=== PATIENT | female | born 1955 | race Caucasian/White ===

== ENCOUNTER 2019-03-12 05:56 | Day surgery (SDC) | payer BC, MEDICARE ==
[2019-03-12] MEDS ORDERED: Lactated Ringers 1,000 ML IV ONE (06:48)
[2019-03-12] MEDS ORDERED: Lactated Ringers 1,000 ML IV SCH (07:00)
[2019-03-12] MEDS ORDERED: DIPRIVAN 200 MG/20 ML IV ONE ×2 (07:25→08:15)
[2019-03-12 09:11] VITALS: O2SAT 98
[2019-03-12 09:19] VITALS: BP 130/80; PULSE 68
--- NOTE | 2019-03-12 10:02 | OP ---
SURGERY DATE/TIME: 03/12/2019 0805 PREOPERATIVE DIAGNOSIS: Screening exam. POSTOPERATIVE DIAGNOSIS: Moderate to severe sigmoid diverticulosis. PROCEDURE: Colonoscopy. SURGEON: Dr. Arriaza. ANESTHESIA: MAC. Medications given by anesthesia department. HISTORY: The patient is a 63 year-old white female presenting now for her first screening colonoscopy. She was appraised of the risks of the procedure including the risk of perforation, phlebitis, untoward reaction to medication, bleeding and missed lesions. The patient verbalized her understanding and desired to have the procedure performed. DESCRIPTION OF PROCEDURE: The patient was given the medications by the anesthesia department. She had continuous pulse oximetry, ECG monitoring, intermittent blood pressure monitoring and tidal CO2 monitoring during the examination. She was placed in the left lateral decubitus position. A digital rectal examination was performed and revealed normal anal sphincter tone and no masses. The flexible Olympus pediatric colonoscope was used to intubate the rectum. A view of the colon was developed sequentially to the cecum. Upon insertion and withdrawal was noted a fairly tortuous sigmoid colon with moderate to severe diverticulosis. There were a few diverticular areas that extended up to the transverse colon. No other mucosal lesions being encountered, the scope was removed from the patient who tolerated the procedure well and was sent back to OP recovery in good condition. The prep was noted to be fair to good.
== END 2019-03-12 09:22 | disposition home or self-care (01) ==
LOC: SDC 05:56
PROVIDERS: ATTEND Family Medicine
DX: Z12.11 Encounter for screening for malignant neoplasm of colon (principal); K57.30 Diverticulosis of large intestine without perforation or abscess without bleeding
CPT/HCPCS: J1642; J2704

== ENCOUNTER 2020-07-19 11:06 | Emergency (ER) | payer MEDICARE ==
[2020-07-19] MEDS ORDERED: MORPHINE SULFATE 4 MG INJ IM ONE (11:26)
[2020-07-19] MEDS ORDERED: MORPHINE SULFATE 4 MG INJ ONE (11:30)
--- NOTE | 2020-07-19 11:38 | ERPHSYRPT ---
- History of Present Illness Time Seen by Provider: 07/19/20 11:14 Source: patient Exam Limitations: no limitations Patient Subjective Stated Complaint: PT states "I was walking my dog yesterday and I tripped over his leash and hit my lower back on the steps. I felt ok last night but could not get out of bed this morning my back hurts so bad." Triage Nursing Assessment: PT presnted alert and oriented X 3, skin pwd. Pt ambulates with a slow gait, grunting and stiff. pt in no apparent respiratory distress. Physician History: 65 years old female presented to the ER with chief complaint of low back pain since yesterday after she tripped on her dog's leash and fell backward hitting her low back against the edge of step. She was able to get up and walk but gradually her pain is getting worse, this morning she was having severe sharp pain across low back with no radiation, no associated numbness tingling weakness of lower extremities or loss of bowel or bladder control. Pain is aggravated with ambulation and partial relief with being still. Denies any history of low back pain in the past Timing/Duration: yesterday, sudden, worse Method of Injury: fall Quality: sharp Back Pain Location: lumbar spine, coccyx, paraspinous muscles Severity of Pain-Max: severe Severity of Pain-Current: severe Modifying Factors: Improves With: immobilization, rest. Worsens With: movement Associated Symptoms: denies symptoms Allergies/Adverse Reactions: No Known Drug Allergies Allergy (Verified 03/12/19 06:23) Home Medications: Lisinopril 1 tab PO DAILY 07/26/12 [History] Sertraline HCl [Zoloft] 25 mg PO DAILY 03/11/19 [History] Hx Tetanus, Diphtheria Vaccination/Date Given: Yes Hx Influenza Vaccination/Date Given: No Hx Pneumococcal Vaccination/Date Given: No Immunizations Up to Date: Yes Travel Risk - International Travel Have you traveled outside of the country in past 3 weeks: No - Coronavirus Screening Are you exhibiting any of the following symptoms?: No Close contact with a COVID-19 positive Pt in past 14-21 Days: No - Review of Systems Constitutional: No Symptoms Eyes: No Symptoms Ears, Nose, & Throat: No Symptoms Respiratory: No Symptoms Cardiac: No Symptoms Abdominal/Gastrointestinal: No Symptoms Genitourinary Symptoms: No Symptoms Musculoskeletal: Back Pain Neurological: No Symptoms Psychological: No Symptoms Endocrine: No Symptoms Hematologic/Lymphatic: No Symptoms - Past Medical History Pertinent Past Medical History: Yes Neurological History: No Pertinent History ENT History: No Pertinent History Cardiac History: High Cholesterol, Hypertension Respiratory History: No Pertinent History Endocrine Medical History: No Pertinent History Musculoskeletal History: Arthritis GI Medical History: GERD History: Other Psycho-Social History: Depression Female Reproductive Disorders: No Pertinent History Other Medical History: hx kidney stones - Past Surgical History Past Surgical History: Yes Neuro Surgical History: No Pertinent History Cardiac: No Pertinent History Respiratory: No Pertinent History Gastrointestinal: No Pertinent History Genitourinary: No Pertinent History Musculoskeletal: No Pertinent History Female Surgical History: Section, Lumpectomy - Social History Smoking Status: Never smoker Exposure to second hand smoke: Yes Drug Use: none Patient Lives Alone: Yes - Female History Hx Now: No - Nursing Vital Signs Nursing Vital Signs: Initial Vital Signs Temperature 98.2 F 07/19/20 11:13 Pulse Rate 96 H 07/19/20 11:13 Respiratory Rate 24 07/19/20 11:13 Blood Pressure 163/96 07/19/20 11:13 O2 Sat by Pulse Oximetry 99 07/19/20 11:13 Pain Scale Pain Intensity [Lower Back] 8 Pain Intensity 10 - Physical Exam General Appearance: no apparent distress, alert Eye Exam: eyes nml inspection Ears, Nose, Throat Exam: normal ENT inspection Neck Exam: normal inspection, non-tender, supple, full range of motion Respiratory Exam: normal breath sounds, lungs clear, No chest tenderness Cardiovascular Exam: regular rate/rhythm, normal heart sounds Gastrointestinal Exam: soft, normal bowel sounds, No tenderness Back Exam: normal inspection, vertebral tenderness (Lower lumbar/Sacral area and paraspinal), decreased range of motion, muscle spasm, point tenderness, No normal range of motion Extremity Exam: normal inspection, normal range of motion, pelvis stable Neurologic Exam: alert, oriented x 3, cooperative, nml station & gait, other (2+ reflexes bilateral patellar and Achilles), No motor weakness Skin Exam: normal color SpO2 Interpretation: normal SpO2: 99 O2 Delivery: Room Air Ordered Tests: Active Orders 24 hr Category Date Time Status LUMBAR SPINE W/O [CT] Stat Exams 07/19/20 11:26 Taken Medication Summary Discontinued Medications Generic Name Dose Route Start Last Admin Trade Name Freq PRN Reason Stop Dose Admin Ketorolac Tromethamine 30 mg 07/19/20 12:55 07/19/20 12:57 Toradol 30 Mg Injection IM 07/19/20 12:56 30 mg STAT ONE Administration Ketorolac Tromethamine Confirm 07/19/20 12:56 Toradol 30 Mg Injection Administered 07/19/20 12:57 Dose 30 mg .ROUTE .STK-MED ONE Morphine Sulfate 4 mg 07/19/20 11:26 07/19/20 11:32 Morphine Sulfate 4 Mg Inj IM 07/19/20 11:27 4 mg STAT ONE Administration Morphine Sulfate Confirm 07/19/20 11:30 Morphine Sulfate 4 Mg Inj Administered 07/19/20 11:31 Dose 4 mg .ROUTE .STK-MED ONE Orphenadrine Citrate 60 mg 07/19/20 12:55 07/19/20 12:58 Norflex 60 Mg/2 Ml IM 07/19/20 12:56 60 mg STAT ONE Administration Orphenadrine Citrate Confirm 07/19/20 12:57 Norflex 60 Mg/2 Ml Administered 07/19/20 12:58 Dose 60 mg .ROUTE .STK-MED ONE - Progress Progress: improved, pain not gone completely, re-examined Progress Note: 07/19/20 13:53 65 years old is evaluated for fall with low back pain. She is given pain medication for symptomatic relief her pain is much better but not completely improved. She has a negative neuro exam in lower extremities. I have obtained CT lumbar spine without contrast which showed L2 compression fracture with no pushing into the spinal canal and has no objective findings of spinal canal protrusion. Do not think patient needs to be evaluated by spinal surgery immediately but recommended outpatient follow-up and lumbar support along with pain medications. Discussed signs symptoms of worsening pain with needing return to ER immediately which she seems understanding. Counseled pt/family regarding: diagnosis, need for follow-up, rad results - Departure Departure Disposition: Home Clinical Impression: Lumbar compression fracture Qualifiers: Encounter type: initial encounter Lumbar vertebra fracture level: L2 Qualified Code(s): S32.020A - Wedge compression fracture of second lumbar vertebra, initial encounter for closed fracture Fall Qualifiers: Encounter type: initial encounter Qualified Code(s): W19.XXXA - Unspecified fall, initial encounter Condition: Stable Critical Care Time: No Referrals: ALIA LUCIO [Primary Care Provider] - (1-2 days for reevaluation) AGUSTINA JUSTIN [NON-STAFF PHY W/O PRIVILEGES] - (1-2 days for reevaluation) DOREEN ADAM NP [NON-STAFF PHY W/O PRIVILEGES] - (1-2 days for reevaluation) Instructions: Vertebral Compression Fracture (DC) Additional Instructions: Take pain medications as needed. Follow-up with [facility] for reevaluation. Use lumbar brace. Return to ER for intractable pain, numbness tingling weakness of lower extremities, loss of bowel or bladder control or perineal numbness. Prescriptions: Hydrocodone/Acetaminophen [[place] 7.5-325 Tablet] 1 each PO Q4-6HPRN PRN 3 Days #12 tablet MDD 4 PRN Reason: Pain
[2020-07-19] MEDS ORDERED: TORAdol 30 mg Injection IM ONE (12:55)
[2020-07-19] MEDS ORDERED: Norflex 60 MG/2 ML IM ONE (12:55)
[2020-07-19] MEDS ORDERED: TORAdol 30 mg Injection ONE (12:56)
[2020-07-19] MEDS ORDERED: Norflex 60 MG/2 ML ONE (12:57)
[2020-07-19 13:03] VITALS: BP 160/102; PULSE 85; O2SAT 99
--- NOTE | 2020-07-19 18:45 | XRAY ---
Indication: Low back pain following fall. Multiple contiguous axial images obtained through the lumbar spine. Sagittal and coronal reformatted images obtained. Comparison: None Superior endplate of L2 demonstrates nondisplaced fracture without spinal canal or foraminal encroachment. L2 segment demonstrates less than 25% height loss. No other acute fracture or suspicious bony lesions. Minimal L3-L4 broad-based disc bulge. No obvious disc herniation or spinal canal stenosis. Facets are symmetric with mild bilateral L4-S1 degenerative facet hypertrophy. Sagittal and coronal reformatted images demonstrate normal alignment. Disc spaces maintained. Visualized soft tissues demonstrates moderate scattered aortoiliac calcifications without AAA and sigmoid diverticulosis. Impression: 1. Minimal L2 superior endplate fracture. 2. Minimal L3-L4 broad-based disc bulge better evaluated with outpatient MRI. 3. Incidental scattered vascular calcifications and sigmoid diverticulosis. Comment: Preliminary interpretation was made by [facility]. No critical discrepancy.
== END 2020-07-19 13:43 | disposition home or self-care (01) ==
LOC: ED 11:06
DX: S32.020A Wedge compression fracture of second lumbar vertebra, initial encounter for closed fracture (principal); W01.198A Fall on same level from slipping, tripping and stumbling with subsequent striking against other object, initial encounter; Y93.K1 Activity, walking an animal; I10 Essential (primary) hypertension; E78.00 Pure hypercholesterolemia, unspecified; Z79.899 Other long term (current) drug therapy
CPT/HCPCS: 72131; 96372; 99284; J1885; J2270; J2360